=== PATIENT | female | born 1980 | race Caucasian/White ===

== ENCOUNTER 2023-04-13 07:48 | Emergency (ER) | payer OTHER, SELFPAY ==
--- NOTE | ~2023-04-13 | CT_ITS ---
Noncontrast CT scan of the cervical spine Technique: Multiple contiguous axial [address] images of the cervical spine were obtained and rec onstructed in 2D sagittal and coronal planes on the acquisition scanner. Dose reduction technique was used on this scan by utilizing automated exposure control, adjustment of the mA and/or kV according to patient size. The dose-length product (DLP) was 412.30 mGy-cm. Clinical History: Pain Findings: No fractures or dislocations. Unremarkable visualized bony structures. The intervertebral disc spaces are preserved. No prevertebral soft tissue swelling. Impression: No fracture or subluxation of the cervical spine. Reviewed, dictated and finalized at location . APPLIANCE SERVICER Impression: No fracture or subluxation of the cervical spine.
--- NOTE | ~2023-04-13 | CT_ITS ---
Non-contrast Head CT History: Head trauma Technique: Axial non-contrast imaging of the brain was performed. Dose reduction technique was used on this scan by utilizing automated exposure control and iterative reconstruction technique. The dose -length product (DLP) was 605.33 mGy-cm. Findings: There is no evidence of intracranial hemorrhage, mass lesion, or acute infarct. Brain par enchyma appears normal. The ventricles and subarachnoid spaces are normal in size. The calvarium ap pears normal. The visualized paranasal sinuses and mastoid air cells are clear. There is focal soft tissue swelling of the left parietal scalp. Impression: No intracranial abnormality seen. Reviewed, dictated and finalized at [facility]. IFIED ORTHOTIST Impression: No intracranial abnormality seen.
[2023-04-13 07:18] VITALS: BP 145/96; PULSE 98; RESP 12; TEMP 36.3; O2SAT 100
--- NOTE | 2023-04-13 07:49 | ED.FALL ---
HPI - Fall General Chief Complaint: Fall Stated Complaint: fall History of Present Illness HPI Narrative: 43-year-old female presenting to the emergency department after having a ground level fall. Patient was walking her dog when she slipped on ice fell backwards and struck her head. Patient denies a loss consciousness. Patient does complain of head and neck pain with no back pain. Review of Systems Review of Systems: All systems reviewed & are unremarkable except as noted in HPI and below Exam Narrative: APPEARANCE: Well appearing, no pain, no distress, well-nourished. HEAD: normocephalic, atraumatic. EYES: PERRLA/EOMI, conjunctivae clear. NOSE: Normal no drainage EARS:TMS clear with good light reflex. THROAT: Pharynx clear, no exudate. NECK: Supple. No adenopathy, no masses. RESPIRATORY: Airway patent, respirations nonlabored. Clear to auscultation bilaterally, no rales, rhonchi, wheezing. CARDIOVASCULAR: Regular rate and rhythm without murmurs rubs or gallops. ABDOMINAL: Soft, nontender, nondistended, normal bowel sounds MUSCULOSKELETAL: Moves all extremities. Strength/ROM intact, No edema, No calf tenderness. NEURO: Alert. Cranial nerves II through XII intact. Good gait. Good coordination SKIN: Warm, dry. Normal Color Course Course Emergency Course: 43-year-old female presenting to the emergency department for evaluation after having a ground level fall and subsequent head injury. Patient's imaging was negative for acute intracranial abnormality. Patient's scalp laceration was repaired as described in the procedure note. Patient was updated on the results of her imaging and plan for wound treatment. All questions concerns were addressed patient was comfortable with the plan for discharge and close follow-up. Vital Signs Vital signs: Vital Signs Temperature 97.4 F L 04/13/23 07:18 Pulse Rate 98 04/13/23 07:18 Respiratory Rate 12 04/13/23 07:18 Blood Pressure 145/96 H 04/13/23 07:18 Pulse Oximetry 100 04/13/23 07:18 Oxygen Delivery Room Air 04/13/23 07:18 Temperature 97.4 F L 04/13/23 07:18 Pulse Rate 20 L 04/13/23 09:24 Respiratory Rate 18 04/13/23 09:24 Blood Pressure 123/77 04/13/23 09:24 Pulse Oximetry 98 04/13/23 09:24 Oxygen Delivery Room Air 04/13/23 07:18 Procedures Laceration Laceration 1: Site: scalp Side (If applicable): left Description: linear Depth: simple, single layer Pre-repair: wound explored and irrigated ====== Skin Level ====== Skin layer closed with: minh Number of sutures: 4 Technique: simple, interrupted ====== Subcutaneous Layer ====== ====== Muscle Layer ====== ====== Tendon Layer ====== MDM - Fall Differential Diagnosis Differential diagnosis: Likely concussion with loss of consciousness, concussion without loss of consciousness and other Imaging Data Radiologist's impression: Impressions Cervical Spine CT 04/13/23 08:16 Impression: No fracture or subluxation of the cervical spine. Head CT 04/13/23 08:16 Impression: No intracranial abnormality seen. Discharge Plan Discharge Clinical Impression: Head injury, Neck pain, Laceration of scalp Patient Disposition: Home, Self-Care Condition: Stable Instructions: Antibiotic Form, Head Injury (ED) Additional Instructions: Minh need to be removed in 5-7 days. Tylenol and ibuprofen for pain control. Have close follow-up with your primary care physician. If you have any worsening symptoms then please call or return to the emergency department. Follow-up/Referrals: UNKNOWN,DOCTOR [Primary Care Provider] -
[2023-04-13 09:24] VITALS: BP 123/77; PULSE 20; RESP 18; O2SAT 98
== END 2023-04-13 09:26 | disposition home or self-care (01) ==
PROVIDERS: Emergency Provider Emergency Medicine
DX: S01.01XA Laceration without foreign body of scalp, initial encounter (principal); M54.2 Cervicalgia; W00.0XXA Fall on same level due to ice and snow, initial encounter; Y93.K1 Activity, walking an animal
CPT/HCPCS: 12001; 70450; 72125; 99284; L0140